=== PATIENT | female | born 1995 | race Hispanic/Latino ===

== ENCOUNTER 2025-07-27 05:29 | Emergency (ER) | payer OTHER ==
[~2025-07-27] VITALS: Ht 177.8 cm; Wt 111.1 kg
[2025-07-27 05:49] LABS: IMMATURE GRANULOCYTE ABSOLUTE 0.11 K/uL (0-1); NUCLEATED RED BLOOD CELLS 0.0 % (0.0-0.19); PLATELET COUNT (AUTO) 266 K/uL (130-400); RED BLOOD CELL COUNT(AUTO) 4.88 MIL/uL (4.00-5.50); RED CELL DISTRIBUTION WIDTH 12.9 % (11.0-15.5); WHITE BLOOD COUNT (AUTO) 19.2 K/uL (4.8-10.8)
--- NOTE | 2025-07-27 05:54 | NUR ---
PER LAB, URINE SAMPLE THAT WAS SENT WAS ONLY ENOUGH FOR HCG. PATIENT GIVEN ANOTHER CUP. PT MADE AWARE THAT MORE URINE IS NEEDED.
[2025-07-27 06:00] LABS: CREATININE 0.9 mg/dL (0.5-1.0); GLOMERULAR FILTR. RATE CALC 89.0 mL/min (>90); GLUCOSE,RANDOM 141.0 mg/dL (70-105); SODIUM SERUM 137.0 mmol/L (136-145); UREA NITROGEN, BLOOD 13.0 mg/dL (7-18)
--- NOTE | 2025-07-27 06:02 | ERN ---
ED Note History of Present Illness Stated Complaint: V/D ABD PAIN Chief Complaint: Abdominal Pain Time Seen by MD: 05:32 Dictation: This is a 30-year-old morbidly obese female who presented to the emergency room with complaints of vomitings diarrhea and midabdominal pain that started around little after midnight. She had 3 episodes of emesis pain is mostly located in the mid area of the abdomen without any particular radiation. She also had loose stool. No other family members are sick. She denied any fever chills or rigors. Temperature 97 pulse 95 respirations 20 blood pressure 138 over 87 pulse oximetry 99%. Allergies: Coded Allergies: No Known Allergies (Unverified Allergy, Unknown, 07/27/25) Past Medical History Past Medical History: No Pertinent History Surgical History: Tonsillectomy, Other Surgical History Other: ADENOID Family History: Negative Social History: Negative LMP: Jun 29, 2025 RN Note Reviewed/Agreed w/PFSH: Yes Review of System Dictation Constitutional: Negative for fever,chills, and weight loss Eyes: Negative for injury, pain,redness, and discharge ENT: Negative for injury,pain or swelling Cardiovascular: Negative for chest pain, palpitations, and edema Respiratory: Negative for shortness of breath, cough, and wheezing, Abdomen/GI: Positive for abdominal pain, nausea, vomiting, diarrhea, Back: Negative for injury and pain : Negative for injury, bleeding and discharge MS/Extremity: Negative for injury and deformity Skin: Negative for rash, and discoloration Neuro: Negative for headache, weakness, numbness, tingling, and seizure Psych: Negative for suicide ideation, homicidal ideation, and hallucinations Initial Vital Sign VS Vital Signs Date Time Temp Pulse Resp B/P (MAP) Pulse Ox O2 Delivery O2 Flow Rate FiO2 07/27/25 05:30 97.0 95 20 138/87 99 Room Air Physical Exam Dictation General: awake, alert, NAD Head/Face: Normocephalic, atraumatic Eyes: PERRL, EOMI, vision at baseline ENT: oral cavity clear, TMs clear, no signs of infection Neck: Trachea midline, supple, no nuchal rigidity Cardiovascular: RRR, normal S1/S2, No MRGs, no JVD Respiratory: CTAB, no respiratory distress, No rales or wheezes Abdomen: Soft, non-tender, non-distended, normal bowel sounds, no guarding or rebound. Skin: Warm, dry, normal turgor, no rash MS/Extremity: Pulses equal, no cyanosis, neurovascular intact, FROM Neuro: COAx4, GCS 15, strength 5/5, CN 2-12 intact, normal cerebellar exam, normal gait, Psych: Normal behavior, mood, and affect normal Extremities-trace edema without any palpable cords, Homans sign is negative Results (Laboratory/Radiology) Laboratory/Radiology Laboratory Tests Test 07/27/25 05:40 07/27/25 05:43 White Blood Count 19.2 K/uL (4.8-10.8) H Red Blood Count 4.88 MIL/uL (4.00-5.50) Hemoglobin 14.9 g/dL (12.0-16.0) Hematocrit 44.5 % (36-48) Mean Corpuscular Volume 91.2 fL (79-99) Mean Corpuscular Hemoglobin 30.5 pg (27.0-33.0) Mean Corpuscular Hemoglobin Concent 33.5 g/dL (32.0-36.0) Red Cell Distribution Width 12.9 % (11.0-15.5) Platelet Count 266 K/uL (130-400) Mean Platelet Volume 10.3 fL (7.5-10.5) Immature Granulocyte % (Auto) 0.6 % (0-1) Neutrophils (%) (Auto) 89.5 % (40.0-77.0) H Lymphocytes (%) (Auto) 3.9 % (21.0-51.0) L Monocytes (%) (Auto) 5.7 % (3.0-13.0) Eosinophils (%) (Auto) 0.1 % (0.0-8.0) Basophils (%) (Auto) 0.2 % (0.0-5.0) Neutrophils # (Auto) 17.3 K/uL (1.8-7.7) H Lymphocytes # (Auto) 0.8 K/uL (1.0-4.8) L Monocytes # (Auto) 1.1 K/uL (0.1-1.0) H Eosinophils # (Auto) 0.01 K/uL (0.00-0.70) Basophils # (Auto) 0.03 K/uL (0.00-0.20) Absolute Immature Granulocyte (auto 0.11 K/uL (0-1) Nucleated Red Blood Cells 0.0 % (0.0-0.19) White Cell Morphology Comment See comments Sodium Level 137 mmol/L (136-145) Potassium Level 4.3 mmol/L (3.5-5.1) Chloride Level 102 mmol/L (101-111) Carbon Dioxide Level 26 mmol/L (21-32) Blood Urea Nitrogen 13 mg/dL (7-18) Creatinine 0.9 mg/dL (0.5-1.0) Glomerular Filtration Rate Calc 89 mL/min (>90) Random Glucose 141 mg/dL (70-105) H Total Calcium 8.8 mg/dL (8.5-10.1) Lipase 27 U/L (16-77) Urine HCG, Qualitative NEGATIVE (NEGATIVE) Labs Reviewed?: Yes ED Course ED Course Orders Procedure Category Date Status Time Vital Signs Per CPOE 07/27/25 Transmitted Routine 05:38 Saline Lock Iv CPOE 07/27/25 Transmitted 05:38 Cbc With Differential LAB 07/27/25 Complete 05:38 Lipase LAB 07/27/25 Complete 05:38 Basic Metabolic Panel LAB 07/27/25 Complete 05:38 Ondansetron 4mg Inj PHA 07/27/25 Complete (Zofran 4mg Inj) 06:00 ,Urine Test LAB 07/27/25 Complete 05:39 Urinalysis Profile LAB 07/27/25 Logged 05:54 0.9%Nacl 1000ml (Ns PHA 07/27/25 Complete 1000ml) 06:30 Current Medications Medications (Trade) Dose Ordered Sig/Desean Route PRN Reason Start Time Stop Time Status Last Admin Dose Admin Ondansetron HCl (zoFRAN 4MG INJ) 4 mg ONCE ONCE IVP 07/27/25 06:00 07/27/25 06:01 DC 07/27/25 06:13 Sodium Chloride 1,000 ml @ 0 mls/hr ONCE ONCE IV 07/27/25 06:30 07/27/25 06:31 DC 07/27/25 06:14 Vital Signs Date Time Temp Pulse Resp B/P (MAP) Pulse Ox O2 Delivery O2 Flow Rate FiO2 07/27/25 05:30 97.0 95 20 138/87 99 Room Air Medical Decision Making MDM Differential diagnosis: Gastritis, esophagitis, gastroesophageal reflux disease, acute cholecystitis, peptic ulcer disease, gastroenteritis, colitis, constipation, pancreatitis This is a 30-year-old morbidly obese female who presented to the emergency room with complaints of vomitings diarrhea and midabdominal pain that started around little after midnight. She had 3 episodes of emesis pain is mostly located in the mid area of the abdomen without any particular radiation. She also had loose stool. No other family members are sick. She denied any fever chills or rigors. Temperature 97 pulse 95 respirations 20 blood pressure 138 over 87 pulse oximetry 99%. 6:00 a.m. CBC shows a white count of 19.2 BNP 7 is pending 6:30 a.m. BNP 7 is with a normal limits. Despite mild leukocytosis patient's abdominal exam is very benign and she has responded to IV fluids and symptomatic management . I updated patient and friend answered all the questions Rationale: Tests considered and ordered secondary to shared decision making include: Blood work Previous outside records reviewed: Old ER visits. Risk of complication and/or morbidity or mortality of patient management: None Medications-Per medication reconciliation Need for hospitalization: Patient does not meet criteria for hospitalization. Need for emergency major/minor surgery: No There are no social concerns with this patient. Prescription drug management Prescriptions will include symptomatic care Patient's prior external medical records from other ER visits were reviewed by me as indicated. Prior testing and results from previous visits were reviewed. Prior tests were taken into account with medical decision making and resource utilization, independent historian/historians were used to obtain complete m edical history. I independently interpreted the test that were performed, results were reviewed by me and considered findings on radiology if ordered. Medical management and examination interpretation discussions were had by me with other qualified healthcare professionals as indicated for the patient's care. Problem List Problem List: (1) Gastroenteritis DX & DISP Disposition: Discharge Departure Impression: Primary Impression: Gastroenteritis Additional Impression: Abdominal pain Condition: Stable Additional Instructions: Patient and the caregiver have been informed of all the diagnostic tests and the imaging conducted during the today's visit to the emergency room and has herman balized understanding of the results I have personally reviewed and interpreted all diagnostic exams performed here in the ER today as well as the vital signs documented by the nursing staff. The patient is now being discharged to home and should follow up with the primary care physician or the specialist as directed by the ER staff. Follow-up with primary care provider in 1 to 2 days. Take medications as directed here in the emergency room. Okay to continue home medications unless otherwise discussed during your visit in the emergency room today. Return to your nearest emergency room if symptoms worsen or if there is no improvement. Call 911 if you need immediate assistance. Take Tylenol or Motrin [id number] as needed and if no contraindications are present. Increase oral hydration. A wound culture or urine culture was ordered here in the emergency room department please follow-up with primary care provider and advise them to get repeat ports from our facility. If you had any Mathew wrap/splints that were applied here, please do not remove them until you see your primary care or specialty. Referrals: GISELL CARDOZO MD (PCP) ELVA ALEGRIA MD Jul 27, 2025 06:02
[2025-07-27] MEDS: 0.9%NACL 1000ML 1,000 ML IV ONE (06:14)
[2025-07-27 07:03] VITALS: BP 105/68; PULSE 88; RESP 18; TEMP 97.6; O2SAT 97
== END 2025-07-27 07:18 | disposition home or self-care (01) ==
LOC: EDH 05:29
DX: K52.9 Noninfective gastroenteritis and colitis, unspecified (principal); Z90.89 Acquired absence of other organs
CPT/HCPCS: 99283; 96374; 96361; 80048; 83690; 85025; 81025; 36415; J7030; J2405